=== PATIENT | male | born 1985 | race African-American/Black ===

== ENCOUNTER 2020-11-24 18:53 | Emergency (ER) | payer SELFPAY ==
[~2020-11-24] VITALS: Ht 193 cm; Wt 132.0 kg
--- NOTE | 2020-11-24 19:16 | PHYS DOC ---
Past Medical History Past Medical History: Hypertension, Hypothyroid (TRAV GARCIA DO) Past Medical History: No Pertinent History (JHONY SHAY DO) Smoking Status: Current Every Day Smoker Alcohol Use: Occasionally Drug Use: None (TRAV GARCIA DO) General Adult EDM: Chief Complaint: ELEVATED HA1C HPI: HPI: Patient is a 35 year old male who was sent here by his family physician at [facility] due to elevated hemoglobin A1c. Patient does not have a history of diabetic. He does have history of hypothyroidism, he is on Synthroid. He also has a history of hypertension he is on HCTZ. Patient said recently he had. Blurred vision, cramping in his legs, muscle spasm off and on. Says yesterday his doctor stopped him from taking HCTZ. They also checked his hemoglobin A1c and it was 13. Patient said about 4 months ago it was only 4. Patient also complained of some trouble breathing with exertion off and on. Patient denies any chest pain. Patient is a smoker. Patient said he is fully vaccinated for COVID-19. Patient denies any abdominal pain, no nausea vomiting. Patient denies any headache at this time. Patient denies any chest pain at this time. (TRAV GARCIA DO) Review of Systems: Review of Systems: Constitutional: Denies fever or chills. [] Eyes: Denies change in visual acuity. [] HENT: Denies nasal congestion or sore throat. [] Respiratory: Denies cough, positive for short of air with exertion Cardiovascular: Denies chest pain or edema. [] GI: Denies abdominal pain, nausea, vomiting, bloody stools or diarrhea. [] : Denies dysuria. [] Musculoskeletal: Denies back pain or joint pain. Positive for muscle spasm and cramping Integument: Denies rash. [] Neurologic: Denies headache, focal weakness or sensory changes. [] Endocrine: Denies polyuria or polydipsia. [] Lymphatic: Denies swollen glands. [] Psychiatric: Denies depression or anxiety. [] (TRAV GARCIA DO) Heart Score: C/O Chest Pain: N/A Risk Factors: Risk Factors: DM, Current or recent (<one month) smoker, HTN, HLP, family history of CAD, obesity. Risk Scores: Score 0 - 3: 2.5% MACE over next 6 weeks - Discharge Home Score 4 - 6: 20.3% MACE over next 6 weeks - Admit for Clinical Observation Score 7 - 10: 72.7% MACE over next 6 weeks - Early Invasive Strategies (TRAV GARCIA DO) Physical Exam: PE: Constitutional: Well developed, well nourished, no acute distress, non-toxic appearance. [] HENT: Normocephalic, atraumatic, bilateral external ears normal, oropharynx moist, no oral exudates, nose normal. [] Eyes: PERRLA, EOMI, conjunctiva normal, no discharge. [] Neck: Normal range of motion, no tenderness, supple, no stridor. [] Cardiovascular:Heart rate regular rhythm, no murmur [] Lungs & Thorax: Bilateral breath sounds clear to auscultation [] Abdomen: Bowel sounds normal, soft, no tenderness, no masses, no pulsatile masses. [] Skin: Warm, dry, no erythema, no rash. [] Back: No tenderness, no CVA tenderness. [] Extremities: No tenderness, no cyanosis, no clubbing, ROM intact, no edema. [] Neurologic: Alert and oriented X 3, normal motor function, normal sensory function, no focal deficits noted. [] Psychologic: Affect normal, judgement normal, mood normal. [] (TRAV GARCIA DO) PE: Constitutional: Well developed, obese, no acute distress, non-toxic appearance HENT: Normocephalic, atraumatic Eyes: Conjunctiva normal, no discharge Neck: Normal range of motion, supple Lungs & Thorax: No respiratory distress, equal chest rise and fall Skin: Warm, dry, no erythema, no rash Extremities: No deformity, ROM intact, no edema Neurologic: Alert and oriented X 3, no focal deficits noted Psychologic: Affect normal, judgment normal (JHONY SHAY DO) EKG: EKG: [] (TRAV GARCIA DO) EKG: @1923 NSR at 88bpm, NO ST elevation, QRS 102ms, QT/QTc 348/424ms, mild ST depression II, LVH (JHONY SHAY DO) Radiology/Procedures: Radiology/Procedures: [] (TRAV GARCIA DO) Radiology/Procedures: PROCEDURE: CHEST AP ONLY EXAM: CHEST 1 VIEW History: Shortness of breath COMPARISON: None available. TECHNIQUE: Single portable radiograph of the chest FINDINGS: The cardiac silhouette is unremarkable. Minimal right lung base atelectasis.. The costophrenic sulci are clear and well demarcated. IMPRESSION: Minimal right lung base atelectasis. Electronically signed by: Amaury Quiñones MD (11/24/2020 8:56 PM) [id number] (JHONY SHAY DO) Course & Med Decision Making: Course & Med Decision Making Pertinent Labs and Imaging studies reviewed. (See chart for details) Patient is a 35-year-old male who present to ER for evaluation of elevated hemoglobin A1c with muscle spasm. Patient does not have a history of diabetic. His doctor has been monitoring his hemoglobin A1c it was for 4 months ago and now it is 13. We will check basic lab work, EKG, chest x-ray because of trouble breathing with exertion... Patients care has been endorsed to the incoming physician at shift change Dr. Jhony Shay. (TRAV GARCIA DO) Course & Med Decision Making 1929- Sign out received from Dr. Garcia for patient with elevated A1c on routine blood draw by PCP. Labs pending at time of signout. Patient seen and evaluated myself. Labs reviewed. Acetone negative. Pseudohyponatremia noted with corrected serum sodium greater than 130. Hyperglycemia noted greater than 900. Patient previously received IV fluid hydration. No signs of infection noted. Chest x-ray stable. Repeat Accu-Chek now down to 500s. Insulin 10 units subcu provided. Patient advised to follow closely with his PCP for further management. Information on diabetic diet provided. Patient stable for discharge with outpatient follow-up with PCP. Discussed findings and plan with patient, who acknowledges understanding and agreement. (JHONY SHAY DO) Dragon Disclaimer: Dragon Disclaimer: This electronic medical record was generated, in whole or in part, using a voice recognition dictation system. (TRAV GARCIA DO) Departure Departure Impression: Primary Impression: Hyperglycemia Additional Impression: Muscle cramping Disposition: HOME / SELF CARE / HOMELESS Condition: STABLE Patient Instructions: Diet - 2000 Calorie Diabetic, Hyperglycemia, [id number] Additional Instructions: Increase fluid hydration. Follow closely with your doctor regarding management of your elevated blood sugars/diabetes. TRAV GARCIA DO Nov 24, 2020 19:16 JHONY SHAY DO Nov 24, 2020 19:45
[2020-11-24 19:30] LABS: BILIRUBIN,URINE NEGATIVE (NEG); CLARITY,URINE CLEAR; COLOR,URINE OTHER; NITRITE,URINE NEGATIVE (NEG); PH,URINE 5.5 (<5.0-8.0); PROTEIN,URINE NEGATIVE (NEG-TRACE); UROBILINOGEN,URINE 0.2 mg/dL (0.2 mg/dL)
[2020-11-24] MEDS ORDERED: LIDO:MAALOX 1:1 20 ML SINGLE DOSE. SWSW ONE (19:30)
[2020-11-24 19:37] LABS: RBC,URINE 0 /HPF (0-2); WBC,URINE OCC /HPF (0-4)
[2020-11-24 19:38] LABS: BACTERIA,URINE FEW /HPF (0-FEW)
[2020-11-24 19:49] LABS: BASO % 1 % (0-3); EOS # 0.1 x10^3/uL (0.0-0.7); EOS % 1 % (0-3); HEMATOCRIT 35.5 % (39.0-53.0); LYMPH # 0.9 x10^3/uL (1.0-4.8); LYMPH % 14 % (24-48); MEAN CORPUSCULAR VOLUME 91 fL (79-100); MONO # 0.5 x10^3/uL (0.0-1.1); MONO % 8 % (0-9); NEUT # 4.8 x10^3/uL (1.8-7.7); NEUT % 76 % (31-73); PLATELET COUNT 212 x10^3/uL (140-400); RED BLOOD COUNT 3.89 x10^6/uL (4.30-5.70); RED CELL DISTRIBUTION WIDTH 13.9 % (11.5-14.5); WHITE BLOOD COUNT 6.3 x10^3/uL (4.0-11.0)
[2020-11-24 20:01] LABS: CALCIUM 7.1 mg/dL (8.5-10.1); CREATININE 1.2 mg/dL (0.7-1.3); GFR 68.5; MAGNESIUM 2.4 mg/dL (1.8-2.4); TOTAL BILIRUBIN 1.4 mg/dL (0.2-1.0)
[2020-11-24 20:15] LABS: HEMOGLOBIN 10.9 g/dL (13.0-17.5); MEAN CORPUSCULAR HEMOGLOBIN 28 pg (25-35)
[2020-11-24 20:16] LABS: MEAN CORPUSCULAR HGB CONC 31 g/dL (31-37)
[2020-11-24 20:40] LABS: ALBUMIN 3.4 g/dL (3.4-5.0); ALBUMIN/GLOBULIN RATIO 0.8 (1.0-1.7); TOTAL PROTEIN 7.7 g/dL (6.4-8.2)
[2020-11-24 20:41] LABS: POTASSIUM 5.2 mmol/L (3.5-5.1)
--- NOTE | 2020-11-24 20:58 | RAD ---
EXAM: CHEST 1 VIEW History: Shortness of breath COMPARISON: None available. TECHNIQUE: Single portable radiograph of the chest FINDINGS: The cardiac silhouette is unremarkable. Minimal right lung base atelectasis.. The costophr enic sulci are clear and well demarcated. IMPRESSION: Minimal right lung base atelectasis. Electronically signed by: Amaury Quiñones MD (11/24/2020 8:56 PM) [id number]
--- NOTE | 2020-11-24 21:00 | EKG ---
[facility] [address] [place] [address] Test Date: 2020-11-24 Test Time: 19:23:08 Pat Name: SARBJIT HOUGH Department: Room: Gender: M Pharmaceutical Sales Representative: : 1985 Requested By: TRAV GARCIA Order Number: [id number] Reading MD: Deion Patton Measurements Intervals [place] Rate: 88 P: 60 TX: 162 QRS: -23 QRSD: 102 T: 58 QT: 348 QTc: 424 Interpretive Statements SINUS RHYTHM LEFTWARD AXIS LVH WITH REPOLARIZATION ABNORMALITY ABNORMAL ECG RI6.02 No previous ECG available for comparison Electronically Signed On 11-27-2020 16:59:34 CDT by Deion Patton
[2020-11-24 21:38] VITALS: BP 125/78
[2020-11-24] MEDS ORDERED: INSULIN REGULAR 100 UNIT/ML 3ML VIAL. SQ ONE ×2 (22:00→22:30)
== END 2020-11-24 22:20 | disposition home or self-care (01) ==
LOC: ER 18:53
DX: R73.9 Hyperglycemia, unspecified (principal); R25.2 Cramp and spasm; I10 Essential (primary) hypertension; E03.9 Hypothyroidism, unspecified; F17.200 Nicotine dependence, unspecified, uncomplicated
CPT/HCPCS: 36415; 71045; 80053; 81001; 82010; 82962; 83735; 83880; 83930; 84443; 84484; 85025; 93005; 96372; 99285; J1815